=== PATIENT | male | born 1975 | race Caucasian/White ===

== ENCOUNTER 2020-09-01 18:30 | Emergency (ER) | payer OTHER ==
[~2020-09-01] VITALS: Ht 188 cm; Wt 104.5 kg
[2020-09-01] MEDS ORDERED: FLECAINIDE (18:38)
[2020-09-01] MEDS ORDERED: NORCO, ANEXSIA 5/325MG TABLET (HYDROcodone/ACETAMINOPHEN) PO ONE (19:15)
--- NOTE | 2020-09-01 20:09 | REP ---
INDICATION: fell COMPARISON: None. TECHNIQUE: Four views obtained. FINDINGS: Four views of the left ankle demonstrate no evidence of acute fracture, dislocation, or intrinsic bone disease. There is lateral soft tissue swelling. IMPRESSION: No fracture or dislocation. <Electronically signed by Vitor Daugherty > 09/01/202004
[2020-09-01 20:33] VITALS: BP 131/88
== END 2020-09-01 20:42 | disposition home or self-care (01) ==
LOC: M ED 18:30
DX: S93.402A Sprain of unspecified ligament of left ankle, initial encounter (principal); W10.8XXA Fall (on) (from) other stairs and steps, initial encounter; Y92.019 Unspecified place in single-family (private) house as the place of occurrence of the external cause; Y93.9 Activity, unspecified; Y99.9 Unspecified external cause status; F43.10 Post-traumatic stress disorder, unspecified

== ENCOUNTER → 2022-05-10 | Outpatient (CLI) | payer OTHER ==
[~2022-05-10] MED LIST: FLECAINIDE
== END ==
LOC: M WUC 11:50
PROVIDERS: ATTEND Internal Medicine
DX: M19.071 Primary osteoarthritis, right ankle and foot (principal)

== ENCOUNTER → 2024-06-19 | Outpatient (CLI) | payer OTHER ==
[~2024-06-19] MED LIST changes: +CELE1CAP4 PO; +CEPH500C PO; +CETI-24; +METO1TAB7 PO; +METO200T15 PO; +PRAV40TA2; +RAMI1.258 PO; +ROSU40TA63; +SERT50TA29; +VITA200032
== END ==
LOC: M SLEEP 20:00
PROVIDERS: ATTEND Internal Medicine
DX: R06.83 Snoring (principal)